=== PATIENT | male | born 1950 | race Caucasian/White ===

== ENCOUNTER → 2022-11-20 10:33 | Outpatient (BNVA) | payer MEDICARE, SELFPAY | PROVIDERS: PCP Family Medicine; Referring Provider Family Medicine; Visit Provider Nurse Practitioner Gerontology | DX: Z46.6 Encounter for fitting and adjustment of urinary device (principal); R33.9 Retention of urine, unspecified | CPT/HCPCS: 36415; 51798; 81003; 99204; 99212 ==

== ENCOUNTER 2022-11-20 12:10 | Outpatient (REF) | payer MEDICARE, SELFPAY ==
[2022-11-20 13:13] LABS: CREATININE 1.1 mg/dL (0.70-1.30); Estimated GFR 72.22 (mL/min/1.73m2)
[2022-11-20 23:12] LABS: PSA, Diagnostic 6.1 ng/mL (<=6.5)
== END 2022-11-20 12:11 | disposition home or self-care (01) ==
LOC: LBN 12:10
PROVIDERS: PCP Family Medicine; Visit Provider Nurse Practitioner Gerontology
DX: N40.0 Benign prostatic hyperplasia without lower urinary tract symptoms (principal); R31.9 Hematuria, unspecified; R97.20 Elevated prostate specific antigen [PSA]; Z01.812 Encounter for preprocedural laboratory examination
CPT/HCPCS: 82565; 84153

== ENCOUNTER 2022-11-24 02:50 | Outpatient (CLI) | payer MEDICARE, SELFPAY ==
--- NOTE | 2022-11-24 07:45 | DI.CT_ITS ---
Exam(s) CT ABDOMEN PELVIS WO/W EXAM: CT ABDOMEN PELVIS WO/W CLINICAL HISTORY: gross hematuria,431.9 TECHNIQUE: Imaging Protocol: Axial computed tomography images with coronal and sagittal reformatted images were created and reviewed CONTRAST MATERIAL: Intravenous: Omnipaque 350 Contrast volume:100 mL Oral: No COMPARISON: No exams were available for comparison FINDINGS: ABDOMEN: Lung Bases: Mild coronary artery calcification. Liver: Normal density. There are few round subcentimeter hypodensities in the liver. They are too sm all for further characterization but likely reflect small cysts. No suspicious hepatic lesions are s een. Portal, Superior Mesenteric, and Splenic Veins: Unremarkable. Gallbladder and Biliary Tract: Cholelithiasis. No biliary ductal dilatation. Pancreas: Normal density, no abnormal calcifications or inflammatory process. Spleen: Normal. Adrenals: No masses seen. Kidneys: Normal size, contour and axis. No radiodense stones or obstructive uropathy. No masses seen. Abdominal Aorta: Abdominal portion non-dilated. Mild atherosclerosis. Bowel: Colonic diverticulosis but no evidence of acute diverticulitis. No evidence of bowel wall thi ckening or obstruction. No evidence of appendicitis. Peritoneal Cavity: No ascites, collection or mesenteric inflammatory response. No free air. Lymph Nodes: Within normal limits. Bones: Within normal limits for the patient's age. There is a mild right convex curvature of the lum bar spine. Soft Tissues: Mild fat containing inguinal hernias. PELVIS: Bladder: Symmetric distention, no gross wall thickening. Reproductive Organs: The prostate gland is enlarged and lobulated impinging upon the base of the urin ana bladder. Lymph Nodes: Within normal limits. Bones: Within normal limits for the patient's age. IMPRESSION: 1. No evidence of nephrolithiasis or hydronephrosis. 2. No evidence of a renal mass. 3. Enlarged lobulated prostate gland which pinches upon the base of the urinary bladder. This may re flect benign prostatic hypertrophy. There is concern for prostatic carcinoma, further evaluation parul uld be obtained. 4. Cholelithiasis. No evidence of acute cholecystitis. 5. Colonic diverticulosis without evidence of acute diverticulitis. RADIATION DOSE DELIVERED: Total DLP Total DLP DATA REPOSITORY: All CT scans at this facility are submitted to the National Radiology Data Registry (NRDR) Dose Index Registry (DIR) with the [employer] (ACR). RADIATION OPTIMIZATION: All CT scans at this facility use at least one of these dose optimization te chniques: automated exposure control; mA and/or kV adjustment per patient size (includes targeted exa ms where dose is matched to clinical indication); or iterative reconstruction.
[2022-11-24] MEDS: Normal Saline Flush 10 ML SYR IVP (14:12)
[2022-11-24] MEDS: Normal Saline - Diluent 50 ML VIAL IJ (14:12)
[2022-11-24] MEDS: Omnipaque 350 MG/ML 500 ML BTL-Imaging package IJ (14:13)
== END 2022-11-24 03:10 ==
LOC: DI 02:50
PROVIDERS: PCP Family Medicine; Visit Provider Nurse Practitioner Gerontology
DX: R31.9 Hematuria, unspecified (principal); K80.00 Calculus of gallbladder with acute cholecystitis without obstruction; R93.41 Abnormal radiologic findings on diagnostic imaging of renal pelvis, ureter, or bladder; K57.30 Diverticulosis of large intestine without perforation or abscess without bleeding
CPT/HCPCS: 74178

== ENCOUNTER 2022-12-22 06:05 | Inpatient (IN) | payer MEDICARE, SELFPAY ==
[2022-12-22] VITALS (13 sets, daily range): BP systolic 70–126; BP diastolic 45–92; PULSE 54–100; RESP 14–22; TEMP 36.4–36.9; O2SAT 93–100; BMI 27.9
--- NOTE | 2022-12-22 06:40 | W.PM.HP.N ---
Date of service: 12/22/22 Time of Service: 06:41 Assessment and Plan Assessment and plan (1) Incomplete emptying of bladder: Status: Acute (2) Elevated PSA: Status: Acute (3) BPH (benign prostatic hyperplasia): Status: Chronic (4) Gross hematuria: Assessment and plan: We will do cystoscopy to complete his hematuria work-up. As long as there is no evidence of bladder tumor, we will go ahead with transurethral resection of the prostate for his lower urinary tract symptoms. History of Present Illness History of Present Illness Chief Complaint: Incomplete bladder emptying Narrative: This is a 72-year-old gentleman who has a history of urinary incontinence. He was found to have over 500 cc in his bladder after voiding, so it appears that he has overflow incontinence. He was started on clean intermittent catheterization He has had gross hematuria so he was evaluated with a CT urogram. No upper tract lesions were identified. Trilobar enlargement of the prostate was seen. He does have a history of an elevated PSA. He has had negative prostate biopsies at [facility] in 2018. His PSA while remaining elevated has been stable since then. Review of Systems Narrative: No fevers or chills No vision change or dysphasia Hx hypothyroidism. No diabetes No shortness of breath, cough or hemoptysis No chest pain or palpitations No nausea, vomiting, hepatitis, ulcers, jaundice No seizures, strokes or peripheral neuropathy No bleeding disorders or anemia No gout PFSH All Active Problems (Updated 12/22/22 @ 06:47 by Shivam Chowdhury MD) Hyperglycemia (Acute) Hyperlipidemia (Acute) Renal insufficiency (Chronic) Hypothyroidism (Chronic) BPH (benign prostatic hyperplasia) (Chronic) Depression (Chronic) Hypertension (Chronic) Elevated PSA (Acute) Incomplete emptying of bladder (Acute) Medical History (Updated 12/22/22 @ 06:47 by Shivam Chowdhury MD) Gross hematuria Surgical History H/O nasal septoplasty History of appendectomy History of hernia repair Social History Smoking/Tobacco Use Status: Former Tobacco Use Quit Date: 05/04/72 Smoking risk assessment performed?: Yes Alcohol Intake: current Alcohol Intake frequency: a few times a week Drug use: Never Substance use type: does not use Housing: house Do you feel safe at home: Yes Do you feel safe in your relationship?: Yes Meds Allergies and Home Medications Allergies Allergy/AdvReac Type Severity Reaction Status Date / Time No Known Allergies Allergy Verified 12/22/22 06:25 Home Medications Medication Instructions Recorded Confirmed Type atorvastatin 20 mg tablet 20 mg PO DAILY 03/13/22 12/22/22 History bupropion HCl 300 mg 24 hr tablet, 300 mg PO QAM 03/13/22 12/22/22 History extended release levothyroxine 50 mcg capsule 50 mcg PO DAILY 03/13/22 12/22/22 History lisinopril 20 mg tablet 20 mg PO DAILY 03/13/22 12/22/22 History tamsulosin 0.4 mg capsule 0.8 mg PO DAILY 03/13/22 12/22/22 History Exam Const General: cooperative Neck Neck: supple Resp Effort & Inspection: normal respiratory effort Auscultation: clear to auscultation bilaterally Cardio Rate: regular rate Rhythm: regular rhythm GI Palpation: soft Neuro General: patient alert, patient awake and patient oriented x3 Results Last Vital Signs Temp 36.4 C L 12/22/22 06:15 Pulse 54 L 12/22/22 06:15 Resp 18 12/22/22 06:15 BP 126/92 H 12/22/22 06:15 Pulse Ox 98 12/22/22 06:15 Time Spent Time spent with Patient: <40 minutes Time was spent: other
[2022-12-22] MEDS: Lactated Ringers 1,000 ML 80 ML IV ×2 (06:51→20:53)
--- NOTE | 2022-12-22 06:58 | W.ANESPRE ---
General Info Date of Service Date Performed: 12/22/22 Height: 5 ft 9.5 in Weight: 87.1 kg Body Mass Index (BMI): 27.9 Surgical Procedure: Operation Date: 12/22/22 07:40 Proposed Procedure Side Surgeon p Cysto/Transurethral Resection Prostate/ Vaporization of Prostate Shivam Chowdhury MD Meds Allergies and Home Medications Allergies Allergy/AdvReac Type Severity Reaction Status Date / Time No Known Allergies Allergy Verified 12/22/22 06:25 Home Medication Medication Instructions Recorded atorvastatin 20 mg tablet 20 mg PO DAILY 03/13/22 bupropion HCl 300 mg 24 hr tablet, 300 mg PO QAM 03/13/22 extended release levothyroxine 50 mcg capsule 50 mcg PO DAILY 03/13/22 lisinopril 20 mg tablet 20 mg PO DAILY 03/13/22 tamsulosin 0.4 mg capsule 0.8 mg PO DAILY 03/13/22 Current Visit Medications: Current Medications Generic Name Dose Route Start Last Admin Trade Name Freq PRN Reason Stop Dose Admin Ringer's Solution 1,000 mls @ 80 mls/hr 12/22/22 06:00 12/22/22 06:51 IV 01/18/23 23:59 80 mls/hr INFUSION GABBY Administration Cefazolin Sodium/Dextrose 2 gm in 50 mls @ 100 mls/hr 12/22/22 06:00 Ancef Duplex IVPB 01/18/23 23:59 PREOP GABBY IV Miscellaneous Supplies 1 each 12/22/22 06:00 Iv Access IV 01/18/23 23:59 DIRECTED GABBY Sodium Chloride 0 ml 12/22/22 06:00 Normal Saline Flush 10 Ml Syr IV 01/18/23 23:59 PRN PRN Sodium Chloride 0 ml 12/22/22 06:00 Normal Saline 10 Ml Vial IJ 01/18/23 23:59 DIRECTED PRN Sterile Water 0 ml 12/22/22 06:00 Water,Injection,Sterile 10 Ml Vial IJ 01/18/23 23:59 DIRECTED PRN PFSH Active Problems Active Problems: Problem Status Onset Code Incomplete emptying of bladder R33.9 Elevated PSA R97.20 Hypertension I10 Depression F32.A BPH (benign prostatic hyperplasia) N40.0 Hypothyroidism E03.9 Renal insufficiency N28.9 Hyperlipidemia E78.5 Hyperglycemia R73.9 Medical History Medical History (Updated 12/22/22 @ 06:47 by Shivam Chowdhury MD) Gross hematuria Surgical History Surgical History H/O nasal septoplasty History of appendectomy History of hernia repair Tobacco Smoking/Tobacco Use Status: Former Tobacco Use Alcohol Alcohol Intake: current Alcohol intake frequency: a few times a week Substance Use Substance use: Never Substance use type: does not use Vital Signs and Lab Results Vital Signs Most Recent Vital Signs in EMR: Most Recent Vital Signs Temp Pulse Resp BP Pulse Ox 36.4 C L 54 L 18 126/92 H 98 12/22/22 06:15 12/22/22 06:15 12/22/22 06:15 12/22/22 06:15 12/22/22 06:15 Lab Results Blood Type / Crossmatch: No Data to Display Complete Blood Count: No Data to Display Complete Metabolic Panel: No Data to Display Liver Function Panel: No Data to Display Coagulation Panel: No Data to Display Cardiac Panel: No Data to Display Arterial Blood Gas: No Data to Display Venous Blood Gas: No Data to Display Pancreas Panel: No Data to Display Thyroid Panel: No Data to Display Infectious Disease: No Data to Display Blood Cultures: No Data to Display Toxicology Panel: No Data to Display Anesthesia Assessment and Plan Anesthesia History Personal History: No History of Anesthesia Complications Family History: No Family History of Anesthesia Complications Exercise Tolerance Exercise Tolerance: Metabolic Equivalents>4 Pertinent Negatives Pertinent Negatives: No Symptoms of GERD, No Major Cardiovascular Symptoms or Complaints and No Major Pulmonary Symptoms or Complaints Cardiac & Pulmonary Exam Cardiac Exam: Normal S1/S2 Heart Sounds Pulmonary Exam: Clear Bilateral Breath Sounds Implantable Cardiac Device Does patient have a Pacemaker or an ICD?: No Airway Exam Known Difficult Airway: No Mallampati Class: 1 Mouth Opening: Normal (> 3cm) Thyromental Distance: Greater than 3 cm Neck Range of Motion: Full ROM Neck Circumference: Normal Teeth Condition: Normal Dentition and Removable Dentures/Plates Lower ASA Classification ASA Score: ASA 2 Emergency Case?: No NPO Status NPO Status: NPO Clears >2 hours, Solids >8 hours Anesthesia Plan Resuscitation Status: Full Code Anesthesia Technique: Spinal Anesthesia Airway Planned: Natural Airway Monitors Used: Standard Monitors and SedLine Preoperative Comments:: SAB with GA backup
[2022-12-22] MEDS: ceFAZolin 2 GM/50 ML BAG IVPB (07:44)
[2022-12-22] MEDS: Lidocaine 2% Jelly 11 ML SYR (08:03)
--- NOTE | 2022-12-22 08:24 | PROST_PTH ---
PATIENT: Richard Jorge LOC: U#:[id number] AGE/SX: 72/M ROOM: MS.218 RE12/22/[address]: Shivam Chowdhury MD : 1950 BED: A DIS: 12/24/2022 SPEC #: [id number] RECD: 12/22/22 12:22 STATUS: SAMIR REQ #: [id number] ROBERTO: 12/22/22 08:[address]: Shivam Chowdhury DEPT: Surgical Specimen RECD BY: Ivonne Seymour ENTERED: 12/22/22 12:22 SP TYPE: PROST OTHR DR: Dante Rockwell Tissues: 1 - PROSTATE CURRETTINGS Procedures: GROSS AND MICRO LEVEL 4 Comments: [id number]
--- NOTE | 2022-12-22 08:51 | W.PM.OP ---
Date of service: 12/22/22 Time of Service: 08:51 Operative Note Operative Note DATE OF PROCEDURE: 12/22/22 PRE-OP DIAGNOSIS: urinary retention PROCEDURE: cystoscopy, TURP SURGEON: Shivam Chowdhury ANESTHESIA TYPE: Local By Surgeon and Spinal Refer to Anesthesia Record ESTIMATED BLOOD LOSS: 250 PATHOLOGY: other (prostate chips) COMPLICATIONS: None Patient was transported to: PACU Patient's condition: stable Implants: 22 Estonian Coude tipped irrigating catheter with 30 cc sterile water in balloon Indications: This is a 72-year-old gentleman who presented with urinary incontinence. He was found to have a high residual bladder volume which did not respond to medical therapy. He had been performing CIC. He presents now for cystoscopy and TURP Findings: Trilobar enlargement of the prostate Procedure Description: The patient was given preoperative antibiotics and brought to the operating room on 12/22/2022. After successful induction of spinal anesthesia, he was placed in the dorsal lithotomy position. His genitalia was prepped and draped. 2% Xylocaine jelly was then instilled into the urethra. A 22 Estonian rigid cystoscope was passed through the urethra into the bladder. The urethra and bladder were inspected with the 30 degree lens. The pendulous, bulbar and membranous urethra was all appeared normal with no strictures. The prostatic urethra showed trilobar enlargement with a median lobe jetting back into the bladder. The remainder of the bladder was inspected. The bladder mucosa was slightly hemorrhagic, but no papillary or nodular lesions were seen. We then utilized a 24 Estonian resectoscope sheath and an Peralta resectoscope to perform TUR P. We used bipolar cautery and began by taking down the median lobe. We then resected the lateral lobes from the bladder neck out to the verumontanum. The depth of the resection was down to the prostatic capsule. Toward the end of our resection, we switched over to the vaporization button and vaporized the remaining tissue down to the prostatic capsule. All resected tissue was evacuated and sent to pathology for permanent section. The bladder was filled with irrigant and the resectoscope was removed. A 22 Estonian hematuria catheter was passed through the urethra into the bladder. The catheter balloon was inflated with 30 cc of sterile water and continuous bladder irrigation was begun. Traction was placed on the catheter balloon and hand irrigation was performed until the irrigant became clear. The patient tolerated the procedure well with no complications.
--- NOTE | 2022-12-22 11:44 | ANES.POST_ITS ---
Postoperative Evaluation Date, Time and Location Date Performed: 12/22/22 Time Performed: 11:15 Patient Location: Med/Surg Vital Signs Most Recent Imported Vital Signs: Most Recent Vital Signs Temp Pulse Resp BP Pulse Ox 36.6 C 57 L 18 125/80 97 12/22/22 09:40 12/22/22 09:40 12/22/22 09:40 12/22/22 09:40 12/22/22 09:40 Pain Score Most Recent Pain Score: Most Recent Pain Score Pain Level 0 12/22/22 09:35 Assessment Mental Status: Awake (Alert & Oriented to Patient Baseline) Airway and Respiratory Function: Patent airway with normal (patient baseline) respiratory exam Cardiovascular Function: Hemodynamically Stable Hydration Status: Adequately Hydrated Nausea & Vomiting: No Nausea or Vomiting Pain: Pt. Denies Any Pain Peripheral Nerve Block: Patient did not receive a nerve block Postoperative Comments:: SAB has resolved for motor, slight sensory loss remaining in toes. Patient pleas e and no further questions.
[2022-12-22] MEDS: Ondansetron 4 MG/2 ML VIAL IVP (14:40)
[2022-12-22] MEDS: Normal Saline 1,000 ML 1000 ML IV (14:40)
[2022-12-22 14:44] LABS: HCT 35.4 % (40.0-50.0)
--- NOTE | 2022-12-22 14:49 | NUR.NOTE ---
Nursing Note: @1400 this rn attempted to get patient to the br for a bm. pt was stable when standing on the side of the bed but got dizzy and fell back into the bed. pt become diaphoretic and clammy. vs were assessed and dr hewitt was paged. pt was noted to be hypotensive and remains hypotensive at this time. ivf ns bolus administration now
[2022-12-22] MEDS: Oxybutynin 5 MG TAB PO ×2 (15:55→20:49)
[2022-12-22] MEDS: ceFAZolin 1 GM/50 ML BAG IVPB (15:55)
[2022-12-22] MEDS: traMADol 50 MG TAB PO (20:50)
[2022-12-22] MEDS: Lactated Ringers 1,000 ML 100 ML IV (20:53)
[2022-12-23] MEDS: ceFAZolin 1 GM/50 ML BAG IVPB ×2 (00:11→08:11)
[2022-12-23] MEDS: Ketorolac 15 MG/ML VIAL IVP ×3 (00:11→23:15)
[2022-12-23] MEDS: Levothyroxine 50 MCG TAB PO (06:27)
[2022-12-23 06:28] VITALS: BP 131/70; PULSE 72; RESP 16; TEMP 36.9; O2SAT 96
[2022-12-23 07:10] LABS: HCT 29.2 % (40.0-50.0); MCH 31.3 pg (27.0-33.0); MCHC 34.2 % (32.0-36.0); MCV 91 fL (80-95); MPV 9.1 fL (8.0-11.0); Platelet Count 204 10^3/uL (130-400); RDW 12.1 % (11.8-14.1); RDW-SD 40.7 fL
[2022-12-23 07:30] LABS: Anion Gap 4.6 mmol/L (3-11); BUN 17 mg/dL (7-18); CO2 26.4 mmol/L (21.0-32.0); CREATININE 1.1 mg/dL (0.70-1.30); Calcium 8.2 mg/dL (8.5-10.1); Chloride 106 mmol/L (98-107); Estimated GFR 72.22 (mL/min/1.73m2); Glucose 119 mg/dL (74-106); Potassium 4.1 mmol/L (3.5-5.1); Sodium 137 mmol/L (136-145)
[2022-12-23 07:31] VITALS: BP 109/68; PULSE 73; RESP 17; TEMP 37; O2SAT 98
--- NOTE | 2022-12-23 07:42 | W.PM.PROGNOT ---
Date of Service Date of service: 12/23/22 Time of Service: 07:42 Assessment and Plan Assessment and plan (1) BPH (benign prostatic hyperplasia): Status: Chronic (2) Incomplete emptying of bladder: Status: Acute Assessment and plan: Other than the in she will episode of hypotension, his postoperative course is as expected. I will discontinue his IV fluid and discontinue his continuous bladder irrigation knowing that we can restart the CBI if the urine is no longer transparent. We may be able to discharge him to home later today if we do not need to restart his bladder irrigation. Subjective Subjective Interval history since last seen: He had a hypotensive episode yesterday when he first tried to get out of bed. He responded to an IV fluid bolus and has had no subsequent episodes of hypotension. When I saw him yesterday postoperatively, his irrigation fluid had stopped and his catheter had clotted off. I hand irrigated the catheter and removed clots. I found a kink in his irrigation tubing and restarted his CBI. He has had no episodes of clot retention since then. He has no chest pain or shortness of breath. Exam Narrative Exam Narrative: He appears comfortable this morning His vital signs are documented elsewhere His bladder irrigation is transparent, light pink He is awake and alert His renal function and hemoglobin are appropriate for his postop course Objective Last Vital Signs Temp 36.9 C 12/23/22 06:28 Pulse 72 12/23/22 06:28 Resp 16 12/23/22 06:28 BP 131/70 12/23/22 06:28 Pulse Ox 96 12/23/22 06:28 Laboratory Results - last 24 hr 12/22/22 12/23/22 12/23/22 14:35 06:30 06:30 WBC 11.60 H RBC 3.20 L Hgb 12.0 L 10.0 L D Hct 35.4 L 29.2 L MCV 91 MCH 31.3 MCHC 34.2 RDW 12.1 Plt Count 204 MPV 9.1 Sodium 137 Potassium 4.1 Chloride 106 Carbon Dioxide 26.4 Anion Gap 4.6 BUN 17 Creatinine 1.1 Est GFR (CKD-EPI 2020) 72.22 Glucose 119 H Calcium 8.2 L Time Spent with Patient Time Spent with Patient: 25-34 minutes Time was spent: preparing to see the patient(eg.review tests), obtaining and/or reviewing separately otained hiistory, indepentently interpreting results and counseling the patient
[2022-12-23] MEDS: Docusate Sodium 100 MG CAP PO (08:09)
[2022-12-23] MEDS: Normal Saline Flush 10 ML SYR IV (08:10)
[2022-12-23] MEDS: Tamsulosin 0.4 MG CAPCR 0.8 MG PO (08:10)
[2022-12-23] MEDS: Normal Saline 500 ML 100 ML IV (08:10)
[2022-12-23] MEDS: Oxybutynin 5 MG TAB PO ×3 (08:10→20:17)
[2022-12-23] MEDS: buPROPion-XL 150 MG TABCR 300 MG PO (08:10)
[2022-12-23] MEDS: traMADol 50 MG TAB PO ×2 (11:43→20:10)
[2022-12-23 15:25] VITALS: BP 111/67; PULSE 78; RESP 18; TEMP 37.1; O2SAT 96
--- NOTE | 2022-12-23 16:35 | PDOC.CMIN ---
Date of service: 12/23/22 Time of Service: 16:35 Care Management Initial Assmt Initial Assessment REASON FOR HOSPITALIZATION:: Urinary Retention CURRENT FUNCTIONAL STATUS:: Up independently, remains on continuous bladder irrigation. ADVANCE DIRECTIVES:: None on file. Has patient been provided with info about the portal/API?: Yes Did the patient sign up for the portal?: No CODE STATUS:: Full Code INSURANCE COVERAGE / FINANCIAL ISSUES:: [facility] PRIMARY CARE PHYSICIAN:: Dante Rockwell POTENTIAL DISCHARGE NEEDS:: Bladder irrigation; follow up appointments. PATIENT/FAMILY EDUCATION NEEDS:: Review discharge instructions, discuss Ask Me Three. ANTICIPATED BARRIERS TO DISCHARGE:: None identified. TRANSPORTATION:: Via private vehicle with family. PLAN:: Anticipate Richard will return home when ready, with no additional services anticipated at this time. CM continues to follow. PFSH All Active Problems (Updated 12/22/22 @ 06:47 by Shivam Chowdhury MD) Hyperglycemia (Acute) Hyperlipidemia (Acute) Renal insufficiency (Chronic) Hypothyroidism (Chronic) BPH (benign prostatic hyperplasia) (Chronic) Depression (Chronic) Hypertension (Chronic) Elevated PSA (Acute) Incomplete emptying of bladder (Acute) Medical History (Updated 12/22/22 @ 06:47 by Shivam Chowdhury MD) Gross hematuria Surgical History H/O nasal septoplasty History of appendectomy History of hernia repair Social History Smoking/Tobacco Use Status: Former Tobacco Use Quit Date: 05/04/72 Smoking risk assessment performed?: Yes Alcohol Intake: current Alcohol Intake frequency: a few times a week Drug use: Never Substance use type: does not use Housing: house Do you feel safe at home: Yes Do you feel safe in your relationship?: Yes
[2022-12-23] MEDS: Milk of Magnesia 30 ML CUP PO (16:37)
[2022-12-23 18:41] VITALS: BP 121/63; PULSE 88; RESP 18; TEMP 37.4; O2SAT 94
[2022-12-23] MEDS: Atorvastatin 20 MG TAB PO (20:17)
[2022-12-23 23:37] VITALS: BP 135/63; PULSE 77; RESP 18; TEMP 36.3; O2SAT 95
[2022-12-24] MEDS: traMADol 50 MG TAB PO (04:50)
[2022-12-24] MEDS: Levothyroxine 50 MCG TAB PO (06:02)
--- NOTE | 2022-12-24 07:34 | DSE_ITS ---
Date of service: 12/24/22 Time of Service: 07:34 DS: Diagnosis Discharge Diagnosis (1) BPH (benign prostatic hyperplasia): Status: Chronic (2) Incomplete emptying of bladder: Status: Acute Discharge Plan Disposition Condition: Stable Discharge Details Reason For Visit: Urinary Retention Admit Date/Time: 12/22/22 06:05 Admit Provider: Shivam Chowdhury Attending Provider: Shivam Chowdhury Primary Care Provider: Dante Rockwell Hospital Course Hospital Course: The patient was admitted to the operating room on 07/22/2022. He underwent a cystoscopy and transurethral resection of the prostate under spinal anesthesia. The procedure itself was uneventful. Postoperatively, an irrigating catheter was left in place and continuous bladder irrigation was maintained. On the evening of surgery, when the patient's spinal had worn off and he was getting out of bed for the first time, he became hypotensive. He had no chest pain or shortness of breath. His hypotension responded to IV fluids and he had no subsequent hypotensive episodes. His hemoglobin was not overly low, so no transfusion was given. On postoperative day #1, I was able to hand irrigate out some clots from the bladder so continuous bladder irrigation was continued. On postoperative day #2, I was able to hand irrigate out a number of smaller clots. We were able to discontinue the continuous bladder irrigation and he is being discharged to home with his catheter in place. At the time of discharge his surgical pathology is still pending. Home Meds and New Rx's Prescriptions: New oxybutynin chloride 5 mg Tablet 5 mg PO TID PRN (Reason: spasm) Qty: 10 0RF No Action tamsulosin 0.4 mg capsule 0.8 mg PO DAILY atorvastatin 20 mg tablet 20 mg PO DAILY lisinopril 20 mg tablet 20 mg PO DAILY bupropion HCl 300 mg tablet extended release 24 hr 300 mg PO QAM levothyroxine 50 mcg tablet 50 mcg PO DAILY Patient Comments: take 1 tablet by mouth once daily for THYROID. PLEASE SET UP APPT FOR LABS FOR FURTHER REFILLS. Discharge Instructions Additional Instructions: Catheter plug irrigation port Price catheter to leg bag required a large drainage bag (patient preference) Follow-up early next week for catheter removal Follow-up appointment with me in 1 to 2 weeks for surgical pathology Okay to shower No lifting or straining for the next 1 to 2 weeks Prescription for oxybutynin sent to the local pharmacy-the medication can be used as needed for bladder spasms Activity:: No lifting over 10 pounds until follow-up visit Shower/Bathe:: 24 hours Equipment/Supplies:: Price to gravity Diet:: As Tolerated DS: Summary Time Spent with Patient providing and/or coordinating discharge services: Greater than 30 minutes Status at Discharge Functional status at discharge: independent ambulation Overall status at discharge: patient is progressing back to baseline Mental Status: mental status grossly normal Speech and Movement: speech and movement normal Mood: congruent mood Affect: normal affect Exam Narrative Exam Narrative: On the morning of discharge, he appears comfortable His vital signs are documented elsewhere His chest wall motion is normal. He is not short of breath at rest. His abdomen is soft with no masses His Price catheter is draining a red-tinged urine. I was able to hand irrigate the catheter and obtained multiple small clots He is awake and alert Psych Mental Status: mental status grossly normal Speech and Movement: speech and movement normal Mood: congruent mood Affect: normal affect DS: Data Vitals/I&O Vitals and I&O: Vital Signs Temperature 36.3 C L 12/23/22 23:37 Temperature Source Tympanic 12/23/22 23:37 Pulse 77 12/23/22 23:37 Pulse Rhythm Regular 12/23/22 20:19 Respiratory Rate 18 12/23/22 23:37 Respiratory Effort Normal, Non-Labored 12/23/22 20:19 Respiratory Depth Normal 12/23/22 20:19 Respiratory Pattern Normal 12/23/22 20:19 Blood Pressure 135/63 12/23/22 23:37 Pulse Oximetry 95 12/23/22 23:37 Oxygen Delivery Method Room Air 12/23/22 23:37 Oxygen Flow Rate 0 12/23/22 23:37 Pain Level 6 12/24/22 04:50 Comment Pt. denies pain at this time. 12/23/22 08:10 Intake & Output 12/23/22 12/23/22 12/24/22 11:59 23:59 11:59 Intake Total 2515.000 / 2995.000 480 / 2995.000 Balance 2515.000 / 2995.000 480 / 2995.000 Intake: IV 1175.000 / 1175.000 Oral 1340 / 1820 480 / 1820 Other: Urine Color Shallowater Urine Appearance Clear Clear Hematuria Hematuria Clots Clots Comment Urine color is now a dark pink and clear. Still awaiting guidance from MD with how to proceed. Pt. states that Dr. Chowdhury came down earlier this afternoon to assess pt.'s continuous bladder irrigation and to perform hand irrigation. Multiple small clots noted in catheter tubing. Price catheter output appears light pink and clear at this time. Pt. has received one and a half bags of continuous bladder irrigation solution thus far on my shift. Stool Size Large Stool Characteristics Soft Brown PFSH All Active Problems Hyperglycemia (Acute) Hyperlipidemia (Acute) Renal insufficiency (Chronic) Hypothyroidism (Chronic) BPH (benign prostatic hyperplasia) (Chronic) Depression (Chronic) Hypertension (Chronic) Elevated PSA (Acute) Incomplete emptying of bladder (Acute) Medical History Gross hematuria Surgical History H/O nasal septoplasty History of appendectomy History of hernia repair Social History Smoking/Tobacco Use Status: Former Tobacco Use Quit Date: 05/04/72 Smoking risk assessment performed?: Yes Alcohol Intake: current Alcohol Intake frequency: a few times a week Drug use: Never Substance use type: does not use Housing: house Do you feel safe at home: Yes Do you feel safe in your relationship?: Yes Time Spent with Patient Time Spent with Patient: <45 minutes Time was spent: ordering medications,tests, procedures and care coordination
--- NOTE | 2022-12-24 07:43 | W.PM.PROGNOT ---
Date of Service Date of service: 12/24/22 Time of Service: 07:43 Assessment and Plan Assessment and plan (1) BPH (benign prostatic hyperplasia): Status: Chronic (2) Incomplete emptying of bladder: Status: Acute (3) Elevated PSA: Status: Acute Assessment and plan: We will discontinue his bladder irrigation, plugged his irrigation port and discharge him to home. He will follow-up in my office early next week for catheter removal. We will see him back in the office in about 1 to 2 weeks so that we can review his surgical pathology. Subjective Subjective Interval history since last seen: The patient has had continuous bladder irrigation overnight and a few clots have passed. There have been no episodes of clot retention. Exam Narrative Exam Narrative: He appears comfortable. I was able to hand irrigate his catheter and then multiple small clots were obtained He is awake and alert Objective Last Vital Signs Temp 36.3 C L 12/23/22 23:37 Pulse 77 12/23/22 23:37 Resp 18 12/23/22 23:37 BP 135/63 12/23/22 23:37 Pulse Ox 95 12/23/22 23:37 Time Spent with Patient Time Spent with Patient: <25 minutes Time was spent: counseling the patient
[2022-12-24 08:08] VITALS: BP 131/74; PULSE 72; RESP 18; TEMP 36.5; O2SAT 97
[2022-12-24] MEDS: buPROPion-XL 150 MG TABCR 300 MG PO (08:36)
[2022-12-24] MEDS: Tamsulosin 0.4 MG CAPCR 0.8 MG PO (08:37)
[2022-12-24] MEDS: Oxybutynin 5 MG TAB PO (08:37)
[2022-12-24] MEDS: Docusate Sodium 100 MG CAP PO (08:37)
--- NOTE | 2022-12-24 10:55 | PDOC.CMDIS ---
Date of service: 12/24/22 Time of Service: 10:55 LACE Index Scoring Tool Questions: Length of Stay (in days): 2 Was the patient admitted via the E.D.?: No E.D. Visits: 0 Answers: Total Score: 2 Risk of Readmission: Low Risk Care Management Discharge Plan Reason for Hospitalization: Urinary Retention Discharge Plan: Richard will return home today with no new services. His will drive him home via private vehicle. He will follow up with Urology, his PCP and discharge plan of care. Patient/Family Education Needs: Review discharge instructions and limitations, discussion of self care needs including ask me three.
== END 2022-12-24 11:08 | disposition home or self-care (01) | DRG 714 ==
LOC: PDS 06:06 → MS 10:07
PROVIDERS: Admitting Provider Urology; PCP Family Medicine; Visit Provider Urology
PROC: 0VT08ZZ Resection of Prostate, Via Natural or Artificial Opening Endoscopic (ICD-10-PCS; CPT 52601; principal; 2022-12-22 07:30)
DX: N40.1 Benign prostatic hyperplasia with lower urinary tract symptoms (principal); R97.20 Elevated prostate specific antigen [PSA]; R33.9 Retention of urine, unspecified; R31.0 Gross hematuria; N39.490 Overflow incontinence; R73.9 Hyperglycemia, unspecified; E78.5 Hyperlipidemia, unspecified; N18.9 Chronic kidney disease, unspecified; E03.9 Hypothyroidism, unspecified; F32.A Depression, unspecified; I12.9 Hypertensive chronic kidney disease with stage 1 through stage 4 chronic kidney disease, or unspecified chronic kidney disease; Z87.891 Personal history of nicotine dependence; I95.81 Postprocedural hypotension
CPT/HCPCS: 52601; 36415; 80048; 85027; 88305; 85014; 85018; J0690; J1885; J2001; J2250; J2371; J2405

== ENCOUNTER 2022-12-25 23:31 | Emergency (ER) | payer MEDICARE, SELFPAY ==
[2022-12-25 23:38] VITALS: BP 121/64; PULSE 79; RESP 18; TEMP 36.8; O2SAT 97
--- NOTE | 2022-12-25 23:47 | ED.GENADUL_ITS ---
Discharge Plan Disposition Patient Disposition: Home Discharge Details Chief Complaint: Urinary Clinical Impression: Complication, blocked Price catheter Primary Care Provider: Dante Rockwell ED Provider: Patel Price Home Meds and New Rx's Prescriptions: No Action tamsulosin 0.4 mg capsule 0.8 mg PO DAILY atorvastatin 20 mg tablet 20 mg PO DAILY lisinopril 20 mg tablet 20 mg PO DAILY bupropion HCl 300 mg tablet extended release 24 hr 300 mg PO QAM levothyroxine 50 mcg tablet 50 mcg PO DAILY Patient Comments: take 1 tablet by mouth once daily for THYROID. PLEASE SET UP APPT FOR LABS FOR FURTHER REFILLS. oxybutynin chloride 5 mg Tablet 5 mg PO TID PRN (Reason: spasm) Qty: 10 0RF Discharge Instructions Instructions: Price Catheter Placement and Care (ED) Additional Instructions: At this time the Price catheter has been on block. If you so choose, you may perform the flushing techniques that we demonstrated here. Please take the oxybutynin every 8 hours as needed. Please follow-up closely with Dr. Chowdhury at your scheduled appointment next week. If you notice any worsening of your symptoms, or any new symptoms such as vomiting, diarrhea, fever, chills, shortness of breath, chest pain, numbness, weakness, or fainting , please return immediately to the emergency department for reevaluation. Please follow up with your primary care provider as soon as possible for reassessment and reevaluation. As always, it was a pleasure participating in your medical care today. Referrals: Shivam Chowdhury MD [ [facility] STAFF PHYSICIAN] - Medical Decision Making This is a very pleasant 72-year-old male with no significant past medical history except for renal insufficiency, high cholesterol, hypothyroidism, BPH, hypertension, and recent TURP just a few days ago by Dr. Chowdhury. Procedure was successful without complications. Patient did have mild persistent bleeding but no clots. Price catheter remained in place and he was discharged home today. Unfortunately this evening he did have a clot that clotted off the Price catheter and he subsequently developed obstruction which led to leaking around the urethra/Price. He admits to some mild pressure, but this is relieved by urinating around the Price. He denies any fever or chills. He does not take blood thinners. No other complaints at this time. M demonstrates a well-appearing male, some blood in the Price catheter bag with no evidence of clots currently. Small amount of blood around the urethral meatus. We will flush out Price catheter and reassess. Patient's Price catheter was irrigated, clots were removed through a few different subsequent attempts. Patient is now feeling much better and draining well. Additionally he was taught how to flush his Price as well. He has no additional questions. He was given the tools to use at home which was his request. Patient feels much better. He will be given 3 oxybutynin tablets to go home with as he is concerned that he may run out before his appointment with Dr. Chowdhury on Thursday. Patient otherwise feels stable. Discussed red flags which to return. I have extensively reviewed the treatment plan and discharge instructions with the patient. I have addressed all patient concerns at this time. The patient was made aware of what symptoms to monitor for that would warrant a return to the emergency department. Discussed the plan with the patient, they demonstrate verbal understanding and agreement with our assessment and plan at this time. The documentation in this chart was dictated using [employer] dictation software. Please excuse any dictation errors. HPI General Date/Time Provider Initiated Documentation: 12/25/22 23:35 . HPI Narrative: This is a very pleasant 72-year-old male with no significant past medical history except for renal insufficiency, high cholesterol, hypothyroidism, BPH, hypertension, and recent TURP just a few days ago by Dr. Chowdhury. Procedure was successful without complications. Patient did have mild persistent bleeding but no clots. Price catheter remained in place and he was discharged home today. Unfortunately this evening he did have a clot that rogers tted off the Price catheter and he subsequently developed obstruction which led to leaking around the urethra/Price. He admits to some mild pressure, but this is relieved by urinating around the Price. He denies any fever or chills. He does not take blood thinners. No other complaints at this time. Related Data Home Medications Medication Instructions Recorded Confirmed atorvastatin 20 mg tablet 20 mg PO DAILY 03/13/22 12/22/22 bupropion HCl 300 mg 24 hr tablet, 300 mg PO QAM 03/13/22 12/22/22 extended release lisinopril 20 mg tablet 20 mg PO DAILY 03/13/22 12/22/22 tamsulosin 0.4 mg capsule 0.8 mg PO DAILY 03/13/22 12/22/22 levothyroxine 50 mcg tablet 50 mcg PO DAILY 12/22/22 12/22/22 oxybutynin chloride 5 mg tablet 5 mg PO TID PRN spasm #10 tabs 12/24/22 Previous Rx's Medication Instructions Recorded oxybutynin chloride 5 mg tablet 5 mg PO TID PRN spasm #10 tabs 12/24/22 Allergies Allergy/AdvReac Type Severity Reaction Status Date / Time No Known Allergies Allergy Verified 12/22/22 06:25 General Stated Complaint: Urinary DENEEN: 3 Review of Systems All systems reviewed & are unremarkable except as noted in HPI and below PFSH All Active Problems (Updated 12/26/22 @ 00:22 by Patel Price DO) Complication, blocked Price catheter (Acute) Hyperglycemia (Acute) Hyperlipidemia (Acute) Renal insufficiency (Chronic) Hypothyroidism (Chronic) BPH (benign prostatic hyperplasia) (Chronic) Depression (Chronic) Hypertension (Chronic) Elevated PSA (Acute) Incomplete emptying of bladder (Acute) Medical History Gross hematuria Surgical History H/O nasal septoplasty History of appendectomy History of hernia repair Social History Smoking/Tobacco Use Status: Former Tobacco Use Quit Date: 05/04/72 Smoking risk assessment performed?: Yes Alcohol Intake: current Alcohol Intake frequency: a few times a week Drug use: Never Substance use type: does not use Housing: house Do you feel safe at home: Yes Do you feel safe in your relationship?: Yes Exam Narrative Exam Narrative: 1.Const: Well-nourished, Well-developed, appearing stated age 2.Eyes: PERRL, no conjunctival injection, and symmetrical lids. 3.ENT: Atraumatic external nose and ears. Moist MM. Neck: Symmetric, trachea midline, No thyromegaly. 4.CVS: +S1/S2, No murmurs or gallops. Peripheral pulses 2+ and equal in all extremities. Brisk capillary refill in all extremities. 5.RESP: Unlabored respiratory effort. Clear to auscultation bilaterally. No wheezes rales or rhonchi 6.GI: Soft, Nontender/Nondistended, No hepatosplenomegaly. No guarding or rebound. Genital exam unremarkable. Price catheter in place. Small amount of blood around the urethral meatus. 7.MSK: Normocephalic/Atraumatic, Extremities w/o deformity or ttp No cyanosis or clubbing, Normal movement of all extremities 8.Skin: Warm, Dry. No rashes or lesions. 9.Neuro: dispatch coordinator II-XII grossly intact. Sensation grossly intact, no focal neurologic deficits. 10.Psych: (AAO) x3. Appropriate mood and affect Course Vital Signs Vital signs: Vital Signs Temperature 36.8 C 12/25/22 23:38 Pulse 79 12/25/22 23:38 Respiratory Rate 18 12/25/22 23:38 Blood Pressure 121/64 12/25/22 23:38 Pulse Oximetry 97 12/25/22 23:38 Temperature 36.8 C 12/25/22 23:38 Temperature Source Temporal Artery Scan 12/25/22 23:38 Pulse 79 12/25/22 23:38 Respiratory Rate 18 12/25/22 23:38 Blood Pressure 121/64 12/25/22 23:38 Pulse Oximetry 97 12/25/22 23:38 Oxygen Delivery Method Room Air 12/25/22 23:38 Oxygen Flow Rate 0 12/25/22 23:38
--- NOTE | 2022-12-26 00:05 | NUR.NOTE ---
Blood clot were extracted from his catheter. 50ml of Fluid was flushed through the flush port and 50ml of fluid came out. Pt states he can feel his bladder empty.
[2022-12-26] MEDS: Oxybutynin 5 MG TAB 15 MG PO (00:41)
== END 2022-12-26 00:45 | disposition home or self-care (01) ==
PROVIDERS: Emergency Provider Student in an Organized Health Care Education/Training Program; PCP Family Medicine
DX: T83.031A Leakage of indwelling urethral catheter, initial encounter (principal); Z98.890 Other specified postprocedural states
CPT/HCPCS: 99283

== ENCOUNTER → 2022-12-29 07:51 | Outpatient (BNVA) | payer MEDICARE, SELFPAY | PROVIDERS: PCP Family Medicine; Referring Provider Family Medicine; Visit Provider Nurse Practitioner Gerontology | DX: Z46.6 Encounter for fitting and adjustment of urinary device (principal); N40.0 Benign prostatic hyperplasia without lower urinary tract symptoms; R33.9 Retention of urine, unspecified | CPT/HCPCS: 99212 ==

== ENCOUNTER → 2023-01-15 10:49 | Outpatient (BNVA) | payer MEDICARE, SELFPAY | PROVIDERS: PCP Family Medicine; Referring Provider Family Medicine; Visit Provider Urology | DX: Z48.816 Encounter for surgical aftercare following surgery on the genitourinary system (principal); N40.1 Benign prostatic hyperplasia with lower urinary tract symptoms; R39.89 Other symptoms and signs involving the genitourinary system; I10 Essential (primary) hypertension ==